=== PATIENT | male | born 1995 | race Caucasian/White ===

== ENCOUNTER 2023-07-17 08:00 | Emergency (ER) | payer OTHER ==
[~2023-07-17] VITALS: Ht 193 cm; Wt 120.2 kg
[2023-07-17] MEDS ORDERED: AMOXICILLIN500 M2 PO (08:54)
[2023-07-17] MEDS ORDERED: PREDNISONE50 MG PO (08:54)
== END 2023-07-17 09:29 | disposition home or self-care (01) ==
LOC: ED 08:00
DX: J02.0 Streptococcal pharyngitis (principal)

== ENCOUNTER 2024-01-18 10:51 | Emergency (ER) | payer OTHER ==
[~2024-01-18] VITALS: Ht 193 cm; Wt 136.1 kg
[~2024-01-18 10:51] MED LIST: AMOXICILLIN500 M2 PO; PREDNISONE50 MG PO
[2024-01-18] MEDS ORDERED: Lidocaine Hydrochloride 2% 10 ML AMP SC ONE (11:45)
[2024-01-18] MEDS ORDERED: Tdap Vaccine 0.5 ML SYR (Adult Vaccine) IM ONE (11:45)
[2024-01-18] MEDS ORDERED: Bacitracin Zinc 14 GM TUBE T ONE (11:45)
== END 2024-01-18 13:12 | disposition home or self-care (01) ==
LOC: ED 10:51
DX: S61.412A Laceration without foreign body of left hand, initial encounter (principal); W27.8XXA Contact with other nonpowered hand tool, initial encounter; Y93.89 Activity, other specified; Y92.89 Other specified places as the place of occurrence of the external cause; Y99.0 Civilian activity done for income or pay